=== PATIENT | female | born 1960 | race Caucasian/White ===

== ENCOUNTER 2018-07-26 05:49 | Observation (INO) ==
[2018-07-26] MEDS ORDERED: Vancomycin Inj 1,000 MG in Sodium Chlor 0.9% Inj 250 ML IV.SIG PRN (06:32)
[2018-07-26] MEDS ORDERED: Chlorhexidine Gluconate 2% 1 Pack (2 Cloths) TOPICAL ONE (06:34)
[2018-07-26] MEDS ORDERED: Metoprolol Tartrate 25 MG Tablet PO ONE (06:34)
--- NOTE | 2018-07-26 06:46 | XR ---
EXAM DATE: 07/26/2018 6:41 AM EST AGE/SEX: 57 years / Female INDICATIONS: Pre op chest x-ray for neck surgery. CLINICAL DATA: This is the patient's initial encounter. Patient reports that signs and symptoms have been present for 1 day and indicates a pain score of 0/10. MEDICAL/SURGICAL HISTORY: None. None. COMPARISON: No prior exams available for comparison. FINDINGS: Portable AP view of the chest demonstrates a normal-sized cardiac silhouette. No effusion, consolidat ion, or pneumothorax is identified. The bones and soft tissues demonstrate no acute finding. CONCLUSION: No acute cardiopulmonary abnormality is identified. Electronically signed by: Gaston Flores MD Board Certified Radiologist 07/26/2018 6:45 AM EST
[2018-07-26] MEDS ORDERED: Sodium Chlor 0.9% Inj 500 ML IV.SIG SCH (07:00)
[2018-07-26] MEDS ORDERED: Propofol Inj 500 MG/50 ML Vial ONE (07:09)
[2018-07-26] MEDS ORDERED: fentaNYL Citrate Inj 250 MCG/5 ML Ampul ONE (07:09)
[2018-07-26 07:16] LABS: Baso # (Auto) 0.1 th/mm3 (0.0-0.2); Baso % (Auto) 1.3 % (0.0-2.0); Eos # (Auto) 0.3 th/mm3 (0.0-0.4); Eos % (Auto) 4.6 % (0.0-4.0); Hematocrit 40.3 % (35.0-46.0); Hemoglobin 13.5 gm/dL (11.6-15.3); Lymph # (Auto) 2.1 th/mm3 (1.0-4.8); Lymph % (Auto) 34.2 % (9.0-44.0); Mean Corpuscular HGB Conc 33.5 % (32.0-36.0); Mean Corpuscular Volume 89.7 fL (80.0-100.0); Mean Platelet Volume 8.8 fL (7.0-11.0); Mono # (Auto) 0.6 th/mm3 (0.0-0.9); Mono % (Auto) 9.8 % (0.0-8.0); Neut % (Auto) 50.1 % (16.0-70.0); Platelet Count 225 th/mm3 (150-450); Red Blood Count 4.49 mil/mm3 (4.00-5.30); Red Cell Distribution Width 12.7 % (11.6-17.2); White Blood Count 6.1 th/mm3 (4.0-11.0)
[2018-07-26 07:24] LABS: Activated Partial Thrombo Time 27.9 sec (23.4-31.7); INR 1.1 Ratio; Prothrombin Time 10.7 sec (9.8-11.6)
[2018-07-26 07:29] LABS: Alanine Aminotransferase 22 U/L (10-53); Albumin 3.7 g/dL (3.4-5.0); Anion Gap 4 meq/L (5-15); Aspartate Aminotransferase 8 U/L (15-37); Blood Urea Nitrogen 18 mg/dL (7-18); Calcium 8.4 mg/dL (8.5-10.1); Carbon Dioxide 28.7 meq/L (21.0-32.0); Chloride 109 meq/L (98-107); Glomerular Filtration Rate Greater Than 89 mL/min (>89); Glucose,Random 108 mg/dL (74-106); Potassium 4.1 meq/L (3.5-5.1); Sodium 142 meq/L (136-145)
[2018-07-26] MEDS ORDERED: ceFAZolin 1 GM Premix Inj 2 GM/100 ML PIGGYBACK IV.SIG ONE (07:30)
[2018-07-26] MEDS ORDERED: Thrombin Topical Soln 5,000 UNIT Vial TOPICAL ONE (07:30)
[2018-07-26 07:31] LABS: Alkaline Phosphatase 83 U/L (45-117); Total Protein 7.2 g/dL (6.4-8.2)
[2018-07-26] MEDS ORDERED: Gelatin Size 100 Topical Foam ONE (07:31)
[2018-07-26] MEDS: Sod Chloride 0.9% Inj 1,000 ML IV.SIG SCH (07:32)
[2018-07-26 07:40] LABS: Bacteria,Urine Rare /hpf; Bilirubin,Urine Negative (Negative); Calcium Oxalate Crystals,Urine Few /hpf; Clarity,Urine Hazy (Clear); Color,Urine Yellow (Yellw/Straw); Glucose,Urine (UA) Negative (Negative); Leukocyte Esterase,Urine Moderate (Negative); Mucus,Urine Many /lpf (Occasional); Nitrite,Urine Negative (Negative); Specific Gravity,Urine 1.024 (1.002-1.035); Squamous Epithelial Cell,Urine 2 /hpf (0-5)
[2018-07-26] MEDS ORDERED: Chlorhexidine Gluconate 2% 1 Pack (2 Cloths) TOPICAL SCH (09:00)
[2018-07-26] MEDS ORDERED: Morphine Sulfate Inj 2 MG/ML Vial IV.PUSH PRN (10:57)
[2018-07-26] MEDS ORDERED: Bisacodyl 10 MG Supp RECTAL PRN (10:57)
[2018-07-26] MEDS ORDERED: Ibuprofen 600 MG Tablet PO PRN (11:00)
[2018-07-26] MEDS ORDERED: *Ondansetron Inj 4 MG/2 ML Vial PERIprocedural Use ONLY ONE (11:24)
[2018-07-26] MEDS ORDERED: *Promethazine Inj 25 MG/ML Vial PERIprocedural use ONLY ONE ×2 (11:33→13:31)
--- NOTE | 2018-07-26 11:37 | XR ---
EXAM DATE: 07/26/2018 11:26 AM EST AGE/SEX: 57 years / Female INDICATIONS: Post-op C6-C7 anterior cervical diskectomy, arthroplasty with Mobi-C. CLINICAL DATA: This is the patient's initial encounter. Patient reports that signs and symptoms have been present for 1 day and indicates a pain score of Nonresponsive. MEDICAL/SURGICAL HISTORY: Non-responsive. Non-responsive. COMPARISON: No prior exams available for comparison. FINDINGS: There is artificial disc at C6-7. Alignment is anatomical. CONCLUSION: Intact intraoperative exam. Electronically signed by: Pippa Meadows MD Board Certified Radiologist 07/26/2018 11:36 AM EST
[2018-07-26] MEDS ORDERED: *morphine SULFATE 10 MG/ML PERIprocedure ONLY ONE ×2 (12:10→12:33)
--- NOTE | 2018-07-26 14:21 | ECG ---
Date Performed: 07/26/2018 Time Performed: 07:05:12 PTAGE: 57 years EKG: SINUS BRADYCARDIA BORDERLINE ECG NO PREVIOUS TRACING DOCTOR: Casey Lara Interpretating Date/Time 07/26/2018 14:19:58
--- NOTE | 2018-07-26 15:09 | P.OP ---
Preoperative Diagnosis: Cervical disk herniation Postoperative Diagnosis: Cervical disk herniation Date of procedure: 07/26/18 Procedure: C6-C7 anterior cervical discectomy, interbody arthroplasty using Mobi C Anesthesia: SHILOHA Surgeon: Kuldip Moon MD Machinist Instructor: Cecelia Yanez Pathology: none sent Operation and Findings: INDICATIONS FOR THE PROCEDURE Ms Isbell is a 57 year-old female who presented with intractable neck pain and clinical evidence of C7 cervical radiculopathy. She was found to have focal disk herniation at C6-7 causing significant mass effect on the right C7 nerve root. She failed multiple modalities of nonsurgical treatment including physical therapy, analgesics, antiinflammatories, and pain management with multiple epidural steroid injections. The severity of her pain and symptoms were affecting her quality of life. An anterior cervical discectomy and arthroplasty were indicated. The [id number] details of the surgical procedure, indications, alternatives, risks and potential complications were fully discussed with the patient. The patient fully understood. All his questions were answered. No guarantees were given. She voiced requesting the procedure and signed informed consents. She was offered the alternative of delaying the procedure and continuing with nonsurgical management. DETAILS OF THE SURGICAL PROCEDURE SURGICAL APPROACH A skin incision was made along the inferior cervical crease on the left side with a #10 blade. The dissection was carried out through the platysma exposing the sternocleidomastoid muscle. The cervical spine was approached following the fascial layers of the neck, just medial to the anterior border of the sternocleidomastoid and carotid sheath by a combination of sharp and dull dissection. The omohyoid muscle was identified and carefully dissected laterally and the deep cervical fascia was carefully opened. The longus colli muscles were retracted to each side of the midline. A marker was placed at the c6-7 disc space and a cross-table lateral x-ray performed with a C-arm. An AP xray was then obtained as well, and the midline of the disk space was defined. SURGICAL DECOMPRESSION In order to decompress the anterior surface of the spinal cord it was necessary to perform a microsurgical resection of the disk. At this point in the procedure the operating microscope was draped in the usual sterile fashion and brought to the field. The rest of the surgical procedure was performed using microdissection technique with the exception of the closure. Under the operative microscopic a self-retaining retractor was placed underneath the longus colli muscle. The annulus was incised with a #15 blade and microdiscectomy was then carefully carried out using angled curets and pituitary forceps. The patient had a right disk extrusion which was producing mass affect on the exiting nerve root. This was carefully dissected with a nerve hock and resected with a think foot plate 2 mm Kerrison under high magnification. The posterior longitudinal ligament was then elevated with an angled curet and incised with a 15 bladed knife. A careful resection of the posterior longitudinal ligament was carried out using a thin footplate 2 mm Kerrison. Extruded disk fragments were causing mechanical compression over the exiting C7 nerve root were carefully dissected. The decompression was then carried out laterally, and a bilateral foraminotomy was performed with a 2 mm thin foot Kerrison. The epidural space was the systematically assessed with a nerve hook in search for disk fragments of scar tissue. An excellent decompression was achieved in both, the dural sac and bilateral exiting nerve roots. The incision was then irrigated with a large amount of antibiotic solution INTERBODY ARTHROPLASTY In order to avoid collapse of the disk space which would result in bilateral foraminal stenosis, and in order to maintain disk space height and function minimally development of adjacent level degeneration, it was necessary to place an interbody device. At this point of the procedure, gentle distraction was applied. The size of the interbody device was then assessed using a trial, and a cross table xray was done for confirmation of appropriate size and position of the device. Then the disk space was irrigated with antibiotic solution, and a 15mm by 5mm Mobi C artificial disk was carefully impacted into the disc space C6-7. An excellent position of the device was achieved. This was confirmed anatomically by feeling the space posterior to the implant and distance to the anterior surface of the dural sac. Radiological confirmation of the position was performed with a cross table AP and lateral X-ray views, performed with the C-arm. COMPLETION OF THE SURGICAL PROCEDURE Once that each interbody device was in an appropriate position, the distraction was discontinued. The position of the device as well as alignment of the spine were assessed anatomically by direct visualization, and radiologically by performing an AP and lateral X-ray of the cervical spine with the C-arm. The position of the implant was excellent. The incision was irrigated with several liters of antibiotic solution. Hemostasis was achieved with a bipolar. A 7 mm Mukesh-[place] drain was left in the prevertebral space and externalized through a separate stab incision. The incision was then closed in layers. 3-0 Vicryl with interrupted sutures was used to close the platysma and subcutaneous tissue. The skin was closed with 4- 0 running subcuticular Vicryl and Dermabond was applied to the skin. The drain was secured with a 3-0 nylon. At the end of the procedure the sponge, needle and instrument counts were all correct. The estimated blood loss was less than 50 cc. No blood transfusion was given. No intraoperative complications occurred. The patient received prophylactic antibiotics. The patient was then extubated and transferred to the recovery room in stable condition.
[2018-07-26] MEDS: ceFAZolin 2 GM Premix Inj 2 GM/50 ML PIGGYBACK IV.SIG SCH (17:17)
[2018-07-26] MEDS ORDERED: fentaNYL Citrate Inj 100 MCG/2 ML Ampul ONE (17:19)
[2018-07-26] MEDS: Senna/Docusate Sodium 8.6/50 MG Tablet PO SCH (20:46)
[2018-07-26] MEDS: Morphine Inj 4 MG/ML Vial IV.PUSH PRN (20:48)
[2018-07-27] MEDS: ceFAZolin 2 GM Premix Inj 2 GM/50 ML PIGGYBACK IV.SIG SCH ×2 (02:58→09:20)
[2018-07-27] MEDS: Morphine Inj 4 MG/ML Vial IV.PUSH PRN ×3 (03:45→16:16)
[2018-07-27] MEDS: Sod Chloride 0.9% Inj 1,000 ML IV.SIG SCH (06:10)
[2018-07-27] MEDS: Senna/Docusate Sodium 8.6/50 MG Tablet PO SCH (08:35)
--- NOTE | 2018-07-27 16:10 | P.PNNS ---
Subjective Interval history: S/p ACD arthroplasty POD #1 Comfortable Incision intact. Moving all 4 extremities well Physical Exam Vital signs: Vital Signs 07/26/18 20:00 07/27/18 00:00 07/27/18 04:00 Temperature 98.3 F 98.1 F 97.6 F Pulse Rate 64 68 66 Respiratory Rate 18 18 18 Blood Pressure 116/63 115/67 128/62 Pulse Oximetry 96 95 95 07/27/18 08:05 07/27/18 12:21 Temperature 97.7 F 97.9 F Pulse Rate 72 66 Respiratory Rate 18 18 Blood Pressure 112/74 153/88 H Pulse Oximetry 95 97 Intake & Output 07/26/18 07/27/18 07/27/18 18:59 06:59 18:59 Intake Total 1250 / 1250 50 / 50 1050 / 1050 Output Total 30 / 30 Balance 1220 / 1220 50 / 50 1050 / 1050 Weight 92.6 kg Intake: IV 50 / 50 50 / 50 50 / 50 Ancef 2 GM Premix Inj 2 gm In 50 / 50 50 / 50 50 / 50 50 ml @ 100 mls/hr IV.SIG Q8H LEONEL Rx#:[id number] Oral 1000 / 1000 Anesthesia Amount 1200 / 1200 Output: Estimated Blood Loss 30 / 30 Other: # Voids 2 2 Narrative: Alert and awake Incision dry, intact no focal deficits Assessment and Plan - Plan Code Status: S/p ACDF Ambulating. Will discharge home today F/u in 2 weeks
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
== END 2018-07-27 17:38 | disposition home or self-care (01) ==
LOC: HSDC 05:49 → N05 05:49
PROVIDERS: ADMIT Neurological Surgery; ATTEND Neurological Surgery
DX: Z01.812 Encounter for preprocedural laboratory examination; M50.123 Cervical disc disorder at C6-C7 level with radiculopathy; R94.31 Abnormal electrocardiogram [ECG] [EKG]; Z01.811 Encounter for preprocedural respiratory examination
CPT/HCPCS: 71010; 71045; 72040; 76000; 80053; 81001; 85025; 85610; 85730; 87640; 87641; 93005; 94150; 96365; 96366; 96375; 96376; 97161; C1889; G0378; G8987; G8988; J0131; J0690; J1100; J1580; J2250; J2270; J2405; J2550; J2704; J3010; J3370; J7050; J7120; L0150; L0172